=== PATIENT | female | born 1960 | race Two or more races ===

== ENCOUNTER 2020-04-27 07:54 | Outpatient (CLI) | payer OTHER | END 2020-04-27 23:59 | disposition home or self-care (01) | LOC: LAB 07:54 | PROVIDERS: ATTEND Specialist | DX: Z01.812 Encounter for preprocedural laboratory examination (principal); Z11.59 Encounter for screening for other viral diseases; M16.12 Unilateral primary osteoarthritis, left hip ==

== ENCOUNTER 2020-05-04 05:18 | Inpatient (IN) | payer OTHER ==
[~2020-05-04] VITALS: Ht 172.7 cm; Wt 94.3 kg
[2020-05-04 05:30] VITALS: BP 157/84
--- NOTE | 2020-05-04 05:30 | NUR ---
MS GEOLOGY ASSOCIATE NOTES PATIENT ADMITTED FOR DAY SURGERY WITH DR. WASHINGTON FOR LEFT HIP TOTAL ARTHROPLASTY. PATIENT IS A/OX4; STABLE ON RA; NO C/O SOB OR PAIN; BREATHING IS EVEN AND UNLABORED. PATIENT HAS BEEN NPO SINCE 05/03/20 AT 2100. IV STARTED ON RIGHT AC, SIZE 20, INTACT & PATENT, HEP LOCKED. CONSENTS SIGNED AND PLACED IN CHART. MRSA SWAB COMPLETED. VITAL SIGNS WNL. SAFETY MEASURES IN PLACE AND PATIENT'S NEEDS MET. WILL CONTINUE TO MONITOR.
--- NOTE | 2020-05-04 06:45 | NUR ---
MS RN NOTES PATIENT TRANSFERRED TO OR [facility]IA [facility]
[2020-05-04] MEDS ORDERED: MIDAZOLAM HCL 2 MG/2ML VIAL ONE ×2 (06:52→16:51)
[2020-05-04] MEDS ORDERED: FENTANYL PF 100MCG/2ML AMPUL ONE (06:53)
[2020-05-04] MEDS ORDERED: MORPHINE SULFATE/PF 10 MG/10ML (1MG/ML) AMPUL ONE (06:53)
[2020-05-04] MEDS ORDERED: FLUMAZENIL 0.5 MG VIAL ONE (06:53)
[2020-05-04] MEDS ORDERED: SCOPOLAMINE HBR 1 EA PATCH.TD72 TD ONE ×2 (06:54→18:00)
[2020-05-04] MEDS ORDERED: BACITRACIN 50000 UNITS/VIAL ONE (06:55)
[2020-05-04] MEDS ORDERED: BUPIVACAINE 0.5 % PF 150 MG/30 ML VIAL ONE (06:55)
--- NOTE | 2020-05-04 07:27 | NUR ---
MS RN NOTES RECEIVED SHORT REPORT ABOUT THE PATIENT. PATIENT IS A NEW ADMIT AND IS IN THE SURGERY RIGHT NOW. WILL CONTINUE CARE AND MONITORING AFTER PATIENT IS BACK FROM OR.
[2020-05-04] MEDS ORDERED: TRANEXAMIC ACID 3,000 MG in SODIUM CHLORIDE IRRIG SOLUTION 70 ML IR ONE (07:30)
[2020-05-04] MEDS ORDERED: ASPI-1169 PO (07:34)
[2020-05-04] MEDS ORDERED: [UNRECOGNIZED DRUG - CODE] PO (07:34)
[2020-05-04] MEDS ORDERED: HYDR-4384 PO (07:34)
--- NOTE | 2020-05-04 07:42 | NUR ---
MS RN CLOSING NOTES ENDORSED TO DAY SHIFT RN BELONGINGS LIST AND MADE AWARE OF PLAN OF CARE. PATIENT'S HOME MEDICATIONS SENT TO PHARMACY; PATIENT VERBALIZED UNDERSTANDING; REFERENCE NUMBER STAPLED TO BELONGINGS LIST AND GIVEN TO DAY SHIFT RN.
[2020-05-04] MEDS ORDERED: HYDROMORPHONE 1 MG/1 ML DISP.SYRIN IV PRN (10:30)
[2020-05-04] MEDS ORDERED: BISACODYL SUPP (10 MG) 10 MG/SUPP.RECT SUPP.RECT RC PRN (10:30)
[2020-05-04] MEDS ORDERED: HYDROCODONE/APAP 5/325MG 1 EACH TABLET PO PRN (10:30)
[2020-05-04] MEDS ORDERED: ONDANSETRON HCL/PF 4 MG/2 ML VIAL IVP PRN (10:30)
[2020-05-04] MEDS ORDERED: DOCUSATE SODIUM 250 MG CAPSULE PO PRN (10:30)
[2020-05-04] MEDS ORDERED: ACETAMINOPHEN 325 MG TABLET PO PRN (10:30)
[2020-05-04] MEDS ORDERED: ZOLPIDEM TARTRATE 5 MG TABLET PO PRN (10:30)
[2020-05-04] MEDS ORDERED: SENNOSIDES 15 MG PO PRN ×2 (10:30→12:52)
[2020-05-04 12:00] VITALS: BP 119/53
[2020-05-04] MEDS ORDERED: SENNOSIDES 8.6 MG TABLET PO PRN (13:00)
--- NOTE | 2020-05-04 14:04 | NUR ---
MS RN NOTES CALLED [employer] TWICE FOR LR SOLUTION BUT STILL DID NOT RECEIVE IT. WILL CONTACT AGAIN.
[2020-05-04] MEDS: IV LR 1000 ML 1,000 ML IV PRN (15:25)
[2020-05-04 16:00] VITALS: BP 122/72
[2020-05-04] MEDS: ANCEF 1 GM/50 ML D5W IV SCH ×4 (16:14→23:14)
[2020-05-04] MEDS ORDERED: PROMETHAZINE HCL 12.5 MG/SUPP.RECT RC PRN (17:00)
[2020-05-04] MEDS ORDERED: MAG HYDROX/AL HYDROX/SIMETH 30 ML UDC PO PRN (17:00)
[2020-05-04] MEDS ORDERED: diphenhydrAMINE HCL 25 MG CAPSULE PO PRN (17:00)
[2020-05-04] MEDS ORDERED: CLONIDINE HCL 0.1 MG TABLET PO PRN (17:00)
[2020-05-04] MEDS: DOCUSATE SODIUM 100 MG CAPSULE PO SCH (17:30)
[2020-05-04] MEDS ORDERED: PROMETHAZINE HCL 12.5 MG/SUPP.RECT RC ONE (18:00)
--- NOTE | 2020-05-04 18:55 | NUR ---
MOUSE BREEDER CLOSING NOTES PATIENT IN BED, ASLEEP; WOKEN UP EASILY. PATIENT A/O X4. AT THIS POINT ON OXYGEN THERAPY AT 2 LPM VIA NASAL CANNULA POST SURGERY; BREATHING IS EVEN AND UNLABORED; NO SOB NOTED AT THIS TIME. NO COMPLAINS OF PAIN SO FAR JUST NAUSEA AND 2 EPISODES OF VOMITING. ZOFRAN ADMINISTERED. TELE MONITOR WITH A CURRENT READING OF NORMAL SINUS RHYTHM. RAC G #20 PRESENT AND INTACT INFUSING LR AT 100 MLS/HR. POST OP DRESSING CLEAN AND INTACT. SAFETY PRECAUTIONS IN PLACE; BED IN LOW POSITION AND LOCKED, RAILS UP X2, CALL LIGHT WITHIN REACH, ABDUCTOR PILLOW IN PLACE. WILL ENDORSE TO MACHINE COMPOSITOR NURSE.
--- NOTE | 2020-05-04 19:15 | NUR ---
RN OPENING NOTE RECEIVED PT SLEEPING IN BED BUT ESAILY AROUSABLE TO NAME AND STIMULI. WHEN AWAKE, PATIENT IS ALERT AND ORIENTED X 4. PT IS CURRENTLY REFUSING O2 VIA NASAL CANULA. RESPIRATION EVEN AND UNLABORED WHILE ON ROOM AIR. S/P LEFT TOTAL HIP ARTHROPLASTY. PT CURRENTLY DENIES PAIN BUT HAS MINOR COMPLAINT OF UNRESOLVED NAUSEA. NO EMESIS PRESENT. PT ON TELE MONITOR SHOWING NORMAL SINUS RHYTHM. WITH RIGHT AC G #20 IV PATENT AND INTACT INFUSING LR AT 100 MLS/HR ORDERED. POST OP DRESSING CLEAN AND INTACT. ABDUCTOR PILLOW IN PLACE, BED LOCKED AND IN LOWEST POSITION, BED ALARM ON, CALL LIGHT WITHIN REACH, SAFETY PRECAUTIONS IN PLACE, WILL MONITOR PATIENT THROUGHOUT SHIFT.
[2020-05-04 20:00] VITALS: BP_SYST 126; BP_SYST 157; BP_DIAS 71; BP_DIAS 81
[2020-05-04] MEDS: ONDANSETRON HCL/PF 4 MG/2 ML VIAL IV PRN (20:43)
[2020-05-04] MEDS: FAMOTIDINE (20 MG) 20 MG TABLET PO SCH (21:15)
[2020-05-04] MEDS: ASPIRIN 81 MG TAB.CHEW PO SCH (21:15)
[2020-05-04] MEDS: MORPHINE SULFATE INJ 4 MG/ML DISP.SYRIN IM PRN (21:16)
[2020-05-05] VITALS (7 sets, daily range): BP systolic 117–141; BP diastolic 69–86
[2020-05-05] MEDS: ONDANSETRON HCL/PF 4 MG/2 ML VIAL IV PRN (00:49)
[2020-05-05] MEDS: IV LR 1000 ML 1,000 ML IV PRN ×2 (04:04→21:32)
--- NOTE | 2020-05-05 04:37 | NUR ---
RN NOTE DR. WASHINGTON AT BEDSIDE PROVIDING PT EDUCATION ON USE OF INCENTIVE SPIROMETER. Addendum: 05/05/20 at 0648 by LUISA TYLER RN ERROR. DR NICHOLSON AT BEDSIDE NOT DR. WASHINGTON.
[2020-05-05] MEDS: MORPHINE SULFATE INJ 4 MG/ML DISP.SYRIN IM PRN ×3 (04:50→20:00)
--- NOTE | 2020-05-05 06:13 | NUR ---
RN NOTE PT IS REFUSING PARTIAL BED BATH AND COMPLETE LINEN CHANGE AT THIS TIME STATING THAT IT MIGHT TRIGGER HER NAUSEA.
--- NOTE | 2020-05-05 06:34 | NUR ---
RN CLOSING NOTE NO ACUTE CHANGES OBSERVED OVERNIGHT. PT IS SLEEPING IN SEMIFOWLER'S POSITION BUT EASILY AROUSABLE. CURRENTLY ON ROOM AIR. RESPIRATIONS EVEN AND UNLABORED. WITHOUT INDICATIONS OF PAIN OR DISCOMFORT AT THIS TIME. WITH RIGHT AC # 20G IV PATENT AND WITHOUT COMPLICATIONS NOTED AT SITE. WITH LR RUNNING @ 100ML/HOUR ORDERED. ABDUCTOR PILLOW IN PLACE, ANAYA CATHETER PATENT AND IN PLACE DRAINING CLEAR YELLOW URINE. SAFETY MEASURES IN PLACE, CALL LIGHT WITHIN REACH, WILL ENDORSE TO MORNING RN FOR CONTINUATION OF CARE.
--- NOTE | 2020-05-05 07:50 | NUR ---
SHIFT LEADER OPENING NOTES PATIENT IN BED, ASLEEP; WOKEN UP EASILY. PATIENT A/O X4. AT THIS POINT ON OXYGEN THERAPY AT 2 LPM VIA NASAL CANNULA POST SURGERY; BREATHING IS EVEN AND UNLABORED; NO SOB NOTED AT THIS TIME. COMPLAINING OF PAIN AND NAUSEA. TELE MONITOR WITH A CURRENT READING OF NORMAL SINUS RHYTHM. RAC G #20 PRESENT AND INTACT INFUSING LR AT 100 MLS/HR. POST OP DRESSING CLEAN AND INTACT. SAFETY PRECAUTIONS IN PLACE; BED IN LOW POSITION AND LOCKED, RAILS UP X2, CALL LIGHT WITHIN REACH, ABDUCTOR PILLOW IN PLACE. WILL CONTINUE TO MONITOR PATIENT.
--- NOTE | 2020-05-05 08:22 | NUR ---
DOCKETING SPECIALIST NOTES PATIENT COMPLAINING OF PAIN 9 OUT OF 10. PRN PAIN MEDICATION ADMINISTERED. WILL CONTINUE TO MONITOR.
[2020-05-05 08:35] LABS: BASOPHILS % (AUTO) 0.3 % (0.0-2.0); EOSINOPHILS % (AUTO) 0.1 % (0.0-6.0); HEMATOCRIT 31 % (33-45); HEMOGLOBIN 9.7 g/dL (11.5-14.8); LYMPHOCYTES # (AUTO) 1.4 /CMM (0.8-4.8); LYMPHOCYTES % (AUTO) 15.6 % (20.0-44.0); MEAN CORPUSCULAR HGB CONC 31 g/dl (31.0-36.0); MEAN CORPUSCULAR VOLUME 80 fL (82-100); MONOCYTES # (AUTO) 0.8 /CMM (0.1-1.30); MONOCYTES % (AUTO) 8.2 % (2.0-12.0); NEUTROPHILS % (AUTO) 75.8 % (43.0-81.0); PLATELET COUNT (AUTO) 219 /CMM (150-450); RED BLOOD CELL COUNT(AUTO) 3.88 MIL/uL (4.0-5.2); WHITE BLOOD COUNT (AUTO) 9.3 K/uL (4.3-11.0)
[2020-05-05 08:50] LABS: CALCIUM, SERUM 8.6 mg/dL (8.5-10.1); CREATININE 0.9 mg/dL (0.6-1.3); MAGNESIUM 2.2 mg/dL (1.8-2.4); PHOSPHORUS 3.6 mg/dL (2.5-4.9); POTASSIUM 4.4 mmol/L (3.5-5.1)
[2020-05-05] MEDS: ASPIRIN 81 MG TAB.CHEW PO SCH ×2 (09:20→16:20)
[2020-05-05] MEDS: FAMOTIDINE (20 MG) 20 MG TABLET PO SCH ×2 (09:20→21:31)
[2020-05-05] MEDS: DOCUSATE SODIUM 100 MG CAPSULE PO SCH ×2 (09:20→16:20)
--- NOTE | 2020-05-05 14:47 | NUR ---
MS RN NOTES JACLYN D/C
--- NOTE | 2020-05-05 18:48 | NUR ---
MS RN CLOSING NOTES PATIENT IN BED, IN AND OUT OF SLEEP; WOKEN UP EASILY. PATIENT A/O X3. BREATHING ON ROOM AIR; BREATHING IS EVEN AND UNLABORED; NO SOB NOTED AT THIS TIME. DURING THE SHIFT PAIN TREATED WITH PRN MEDICATION. TELE MONITOR WITH A CURRENT READING OF NORMAL SINUS RHYTHM. RAC G #20 PRESENT AND INTACT INFUSING LR AT 100 MLS/HR. POST OP DRESSING CLEAN AND INTACT. PT EVAL DONE DURING THE DAY. ANAYA D/C AND PATIENT VOIDED. SAFETY PRECAUTIONS IN PLACE; BED IN LOW POSITION AND LOCKED, RAILS UP X2, CALL LIGHT WITHIN REACH, ABDUCTOR PILLOW IN PLACE. WILL ENDORSE TO INVENTORY COORDINATOR NURSE.
--- NOTE | 2020-05-05 19:30 | NUR ---
MS RN NOTES PATIENT IN BED, AWAKE, ALERT AND ORIENTED X 3. BREATHING EVEN AND UNLABORED ON ROOM AIR. SHOWS NO SIGNS OF ACUTE RESPIRATORY DISTRESS, NO ACUTE PAIN. IV ON RAC 20G RUNNING LR AT 100ML/HR. SHOWS NO SIGNS OF INFILTRATION, NO REDNESS. L TOTAL HIP ARTHROPLASTY 05/04 WITH DRESSING INTACT. SAFETY PRECAUTIONS IN PLACE. BED IN LOWEST POSITION, LOCKED, AND CALL LIGHT KEPT WITHIN REACH. WILL CONTINUE TO MONITOR.
--- NOTE | 2020-05-05 21:43 | NUR ---
MS RN NOTES PT WITH FEVER 101.3. STARTED COOLING MEASURES AND GIVEN TYLENOL AT 2143. PT GIVEN ICE PACK BUT REFUSED TO REMOVED BLANKETS OFF BODY. WILL CONTINUE TO MONITOR.
--- NOTE | 2020-05-05 22:43 | NUR ---
MS RN NOTES AN HOUR AFTER TYLENOL, PT TEMP 98.3. WILL CONTINUE TO MONITOR.
[2020-05-06] MEDS: MORPHINE SULFATE INJ 4 MG/ML DISP.SYRIN IM PRN ×3 (06:33→16:59)
--- NOTE | 2020-05-06 06:58 | NUR ---
MS RN NOTES PATIENT IN BED, AWAKE, ALERT AND ORIENTED X 3. BREATHING EVEN AND UNLABORED ON ROOM AIR. SHOWS NO SIGNS OF ACUTE RESPIRATORY DISTRESS, NO ACUTE PAIN. IV ON RAC 20G RUNNING LR AT 100ML/HR. SHOWS NO SIGNS OF INFILTRATION, NO REDNESS. L TOTAL HIP ARTHROPLASTY 05/04 WITH DRESSING INTACT. ALL DUE MEDICATIONS GIVEN. SAFETY PRECAUTIONS IN PLACE. BED IN LOWEST POSITION, LOCKED, AND CALL LIGHT KEPT WITHIN REACH. WILL ENDORSE TO ONCOMING NURSE.
--- NOTE | 2020-05-06 07:30 | NUR ---
RN Opening note Received patient OA x4, able to responds all stimuli. Pt is s/p left total hip arthroplasty, does no c/o pain or distress at time. Skin is warm to touch, keep clean/dry, intact IV site, dressing will change by MD. Respiratory even and unlabored in room air. Keep bed in locked with elevated HOB for ensure airway and aspiration precaution. Call light within reach, will continue to monitor.
[2020-05-06 08:00] VITALS: BP 127/68
[2020-05-06] MEDS: DOCUSATE SODIUM 100 MG CAPSULE PO SCH ×3 (08:57→16:59)
[2020-05-06] MEDS: FAMOTIDINE (20 MG) 20 MG TABLET PO SCH ×2 (08:57→20:48)
[2020-05-06] MEDS: ASPIRIN 81 MG TAB.CHEW PO SCH ×2 (08:57→16:50)
[2020-05-06] MEDS ORDERED: HYDROCODONE/APAP 10/325MG 1 EA TABLET PO PRN (09:30)
[2020-05-06] MEDS ORDERED: HYDROCODONE/APAP 10/325MG 1 EA TABLET PO ONE (12:00)
[2020-05-06 16:00] VITALS: BP 139/74
--- NOTE | 2020-05-06 18:55 | NUR ---
RN Closing note Patient in bed, given Narco 10mg 2tabsas ordered for s/p arthroplasty on left hip. Respiratory even and unlabored in room air. Skin is warm to touch, kept clean.dry, intact IV site. Waiting approve from ARU. Keep bed in locked with elevated HOB for aspiration precaution. Call light within reach, will endorse bridge construction inspector.
--- NOTE | 2020-05-06 19:30 | NUR ---
MS/RN OPENING NOTES RECEIVED PATIENT IN BED, AWAKE, ALERT AND ORIENTED X 3. BREATHING EVEN AND UNLABORED ON ROOM AIR. SHOWS NO SIGNS OF ACUTE RESPIRATORY DISTRESS. PATIENT HAS IV ON RIGHT AC 20G SL, INTACT. PATIENT HAS LEFT TOTAL HIP ARTHROPLASTY ON 05/04 WITH DRESSING INTACT. SAFETY MEASURES ARE IN PLACE BED IS PLACED IN THE LOWEST POSITION AND LOCKED, SIDE RAILS UP X 2. CALL LIGHT IS WITHIN REACH. WILL CONTINUE TO MONITOR PATIENT THROUGH OUT SHIFT.
[2020-05-06 20:00] VITALS: BP 161/88
--- NOTE | 2020-05-07 00:10 | NUR ---
MS/RN NOTES PATIENT WAS COMPLAINING OF ITCHING UPPER ARMS. BENADRYL 25 MG PO WAS GIVEN. WILL CONTINUE TO MONITOR.
--- NOTE | 2020-05-07 06:30 | NUR ---
MS/RN CLOSING NOTES PATIENT IN BED SLEEPING. PATIENT IS ALERT AND ORIENTED X 3. BREATHING EVEN AND UNLABORED ON ROOM AIR. NO SIGNS OF ACUTE RESPIRATORY DISTRESS NOTED. PATIENT HAS IV ON RIGHT AC 20G SL, INTACT. PATIENT HAS LEFT TOTAL HIP ARTHROPLASTY ON 05/04 WITH DRESSING INTACT. ALL PATIENTS NEEDS HAVE BEEN MET DURING SHIFT, ALL SCHEDULED MEDS GIVEN. SAFETY MEASURES ARE IN PLACE BED IS PLACED IN THE LOWEST POSITION AND LOCKED, SIDE RAILS UP X 2. CALL LIGHT IS WITHIN REACH. WILL ENDORSE CARE TO DAY SHIFT.
--- NOTE | 2020-05-07 06:45 | NUR ---
MS/RN NOTES PHONE CALL FROM DR. NICHOLSON. CHECKING TO SEE HOW PATIENT WAS OVERNIGHT WITH NORCO FOR PAIN.
[2020-05-07] MEDS ORDERED: MAGNESIUM HYDROXIDE 30 ML UDC PO ONE (06:59)
[2020-05-07 08:00] VITALS: BP 135/72
[2020-05-07] MEDS: FAMOTIDINE (20 MG) 20 MG TABLET PO SCH ×2 (08:26→20:58)
[2020-05-07] MEDS: DOCUSATE SODIUM 100 MG CAPSULE PO SCH ×2 (08:26→16:32)
[2020-05-07] MEDS: HYDROCODONE/APAP 10/325MG 1 EA TABLET PO PRN ×2 (08:27→22:47)
[2020-05-07] MEDS: ASPIRIN 81 MG TAB.CHEW PO SCH ×2 (08:27→16:29)
[2020-05-07 08:30] LABS: BASOPHILS % (AUTO) 0.3 % (0.0-2.0); HEMATOCRIT 27 % (33-45); HEMOGLOBIN 8.4 g/dL (11.5-14.8); LYMPHOCYTES # (AUTO) 2.1 /CMM (0.8-4.8); LYMPHOCYTES % (AUTO) 27.2 % (20.0-44.0); MEAN CORPUSCULAR HGB CONC 32 g/dl (31.0-36.0); MEAN CORPUSCULAR VOLUME 78 fL (82-100); MONOCYTES # (AUTO) 0.7 /CMM (0.1-1.30); MONOCYTES % (AUTO) 8.9 % (2.0-12.0); NEUTROPHILS # (AUTO) 4.8 /CMM (1.8-8.9); NEUTROPHILS % (AUTO) 62.6 % (43.0-81.0); PLATELET COUNT (AUTO) 231 /CMM (150-450); RED BLOOD CELL COUNT(AUTO) 3.43 MIL/uL (4.0-5.2); WHITE BLOOD COUNT (AUTO) 7.7 K/uL (4.3-11.0)
[2020-05-07 08:39] VITALS: BP 132/72
[2020-05-07 08:43] LABS: CALCIUM, SERUM 8.8 mg/dL (8.5-10.1); CREATININE 0.8 mg/dL (0.6-1.3); MAGNESIUM 2.2 mg/dL (1.8-2.4); PHOSPHORUS 2.7 mg/dL (2.5-4.9); POTASSIUM 3.7 mmol/L (3.5-5.1)
[2020-05-07] MEDS ORDERED: MAGNESIUM HYDROXIDE 30 ML UDC PO PRN (10:00)
[2020-05-07 16:00] VITALS: BP 134/68
[2020-05-07] MEDS: MORPHINE SULFATE INJ 4 MG/ML DISP.SYRIN IM PRN (18:25)
--- NOTE | 2020-05-07 18:38 | NUR ---
RN END OF SHIFT SUMMARY NOTE PT IS A/OX4, AFEBRILE. NON-MONITORED, VSS. TOLERATING RA. RESPIRATIONS ARE EVEN AND UNLABORED, NOT IN ANY ACUTE DISTRESS NOTED. PAIN MANAGED BY MORPHINE IVP AND NORCO PO PRN. +FLATUS, NO BM DURING SHIFT. VOIDS USING BSC. URINE COLLECTED FOR UA. PIV, FLUSHED, SL. AMBULATORY WITH FWW. SEEN BY PHYSICAL THERAPY TODAY AND WALKED AROUND UNIT X1. SURGICAL DRESSING CDI TO LEFT HIP. REINFORCED TEACHING FOR THE USE OF IS W/ RETURN DEMONSTRATION. ALL NEEDS MET AND RENDERED. SAFETY MEASURES ARE IN PLACE. CALL LIGHT IS LEFT WITHIN REACH. WILL MONITOR AND CONTINUE POC.
--- NOTE | 2020-05-07 19:05 | NUR ---
MS RN OPENING NOTES: RECEIVED PATIENT IN THE BEDSIDE COMMODE,VOIDED, ABLE TO GO BACK TO THE BED BY HERSELF,ONLY STANDBY ASSIST. OFFERED HELP,PATIENT REFUSED, SHE WANTS TO DO IT BY HERSELF. PATIENT IS A/O X4. NO SOB NOTED. NO COMPLAIN OF PAIN. CALL LIGHT WITHIN REACH. BED IN LOWEST AND LOCKED POSITION. PATIENT REFUSED SCD'S. WITH POST OP DRESSING ON THE LEFT HIP INTACT, DRY AND WITH VERY SMALL AMOUNT OF DRIED DRAINAGE. NO BLEEDING NOTED.
[2020-05-07 20:00] VITALS: BP 144/80
--- NOTE | 2020-05-07 22:52 | NUR ---
PATIENT TOOK ONLY ONE [place] TABLET. WITH LEFT HIP ICE PACKS IN PLACE.
--- NOTE | 2020-05-08 06:45 | NUR ---
MS RN CLOSING NOTES: PATIENT IN BED, AWAKE. A/O X4. CALL LIGHT WITHIN REACH. BED IN LOWEST AND LOCKED POSITION. PATIENT COMPLAINED OF LEFT LEG STIFFNESS, BUT ABLE TO BEND KNEE , PATIENT AGREED TO HAVE THE SCD's BACK ON, PLACED ON BOTH LEGS. ABDUCTION PILLOW PLACED BETWEEN THE LEGS. NO BM YET, OFFERED PRN MOM, REFUSED. NO SOB NOTED.
--- NOTE | 2020-05-08 07:51 | NUR ---
RN MS GARCIA NOTES PATIENT IS AWAKE AND ALERT A/O X 4. WITH NO SIGNS OF DISTRESS IN ROOM AIR. IV ON THE R AC #20G INTACT SL. COMPLAINS OF NO PAIN AT THIS MOMENT. ABDUCTION PILLOW PLACED BETWEEN HER LEGS. BED IS IN LOW POSITION WITH SIDE RAILS UP X 2 FOR SAFETY. CALL LIGHT WITHIN REACH. WILL CONTINUE TO MONITOR.
[2020-05-08 08:00] VITALS: BP 146/80
--- NOTE | 2020-05-08 08:00 | NUR ---
TEMPERATURE WAS 99.5 F. GAVE COLD PACKS AND NORCO FOR PAIN AND FEVER. WILL CONTINUE TO MONITOR.
[2020-05-08] MEDS: FAMOTIDINE (20 MG) 20 MG TABLET PO SCH ×2 (09:00→21:00)
--- NOTE | 2020-05-08 09:00 | NUR ---
TEMPERATURE DECREASED TO 99.3F. WILL CONTINUE WITH COLD MEASUREMENTS. WILL CONTINUE TO MONITOR.
[2020-05-08] MEDS: ASPIRIN 81 MG TAB.CHEW PO SCH ×2 (09:01→16:51)
[2020-05-08] MEDS: HYDROCODONE/APAP 10/325MG 1 EA TABLET PO PRN (09:01)
[2020-05-08] MEDS: DOCUSATE SODIUM 100 MG CAPSULE PO SCH (09:02)
--- NOTE | 2020-05-08 09:30 | NUR ---
PATIENT STATED TO BE NAUSEAS OFFERED HER PRN ZOFRAN IV. SHE REFUSED SAYING THAT THE ANTIEMETIC PATCH WAS STILL WORKING BEHIND HER RIGHT EAR. WILL CONTINUE TO MONITOR.
[2020-05-08] MEDS: ONDANSETRON HCL/PF 4 MG/2 ML VIAL IV PRN (14:37)
[2020-05-08 16:00] VITALS: BP 144/68
--- NOTE | 2020-05-08 18:52 | NUR ---
RN MS CLOSED NOTES PATIENT IS AWAKE AND ALERT A/O X 4. WITH NO SIGNS OF DISTRESS IN ROOM AIR. IV ON THE R AC #20G INTACT SL. COMPLAINS OF NO PAIN AT THIS MOMENT. ABDUCTION PILLOW PLACED BETWEEN HER LEGS. PATIENT REMAINED STABLE THROUGH OUT OF SHIFT. PATIENT KEPT CLEAN AND DRY. ALL NEEDS, CARE, TREATMENT AND MEDICATIONS ADMINISTERED ANTICIPATED PER ORDER. SAFETY MEASURE APPLIED, BED IS IN LOW POSITION WITH SIDE RAILS UP X 2 FOR SAFETY. CALL LIGHT WITHIN REACH. WILL ENDORSE TO THE NEXT [place] MACHINE OPERATOR.
--- NOTE | 2020-05-08 19:20 | NUR ---
MS RN OPENING NOTES: RECEIVED PATIENT IN BED, AWAKE, A/O X4. NO SOB NOTED. NO COMPLAIN OF PAIN AND NAUSEA AT THIS TIME. CALL LIGHT WITHIN REACH. BED IN LOWEST AND LOCKED POSITION. STILL NO BM YET, OFFERED MOM, REFUSED. BEDSIDE COMMODE NEAR THE BED. REFUSED THE SCD's. PER PATIENT, MD CAME AND REMOVED THE POST OP DRESSING AND EXAMINED THE SURGICAL SITE. LEFT HIP INCISION IS CLEAN AND DRY, NO DRAINAGE, HEATHER ARE INTACT, LEFT HIP SWOLLEN. SURGICAL INCISION COVERED WITH DRESSING.
[2020-05-08 20:00] VITALS: BP 141/67
[2020-05-08 20:34] VITALS: BP 141/67
[2020-05-08 22:17] VITALS: BP 150/84
[2020-05-08] MEDS: MORPHINE SULFATE INJ 4 MG/ML DISP.SYRIN IM PRN (22:20)
--- NOTE | 2020-05-08 22:30 | NUR ---
PATIENT REFUSED TO HAVE THE ABDUCTION PILLOW ON HER LEGS. INSTRUCTED NOT TO CROSS HER LEGS,PATIENT VERBALIZED UNDERSTANDING. REMINDED OF THE IMPORTANCE OF THE ABDUCTION PILLOW.
--- NOTE | 2020-05-08 22:34 | NUR ---
PATIENT IS SITTING AT THE BEDSIDE COMMODE AT THIS TIME, CAITLYN LAGOS AT THE ROOM TO ASSIST THE PATIENT. INSTRUCTED TO TURN THE BED ALARM ON.
--- NOTE | 2020-05-08 22:56 | NUR ---
ICE PACKS PLACED TO THE LEFT HIP.SCD's ON THE LEGS ON. BED ALARM ON.
--- NOTE | 2020-05-08 22:57 | NUR ---
PATIENT SAID THAT HER CHEST PAIN IS 8/10 LEVEL, TIGHTNESS. PATIENT VERBALIZED" IT'S GETTING BETTER NOW AND IT WILL GO AWAY". WILL MONITOR.
--- NOTE | 2020-05-09 00:06 | NUR ---
PATIENT IS ASLEEP AT THIS TIME.
--- NOTE | 2020-05-09 01:47 | NUR ---
PATIENT WAS UPSET BECAUSE SHE SAID THAT AROUND 2099 TO 2129, SHE PRESSED THE CALL [employer] AND SOMEBODY ANSWERS THE CALL BUT NO ONE CAME. ASKED THE BULK PLANT SUPERVISOR FERNANDA IF SHE RECEIVED A CALL FROM THE PATIENT AND SHE SAID NO. ACCORDING TO THE PATIENT, SHE WENT TO THE BATHROOM AND SHE SLIPPED AND ALMOST FALL BECAUSE SHE STEPPED ON HER URINE, SHE WAS ABLE TO SIT ON THE TOILET. PATIENT SAID THAT SHE ASKED THE EVS TO CLEAN THE FLOOR. INFORMED THE CHARGE NURSE GIORGIO ABOUT THE INCIDENT AND TALKED TO THE PATIENT.
--- NOTE | 2020-05-09 06:22 | NUR ---
MS RN CLOSING NOTES: PATIENT IN BED, AWAKE, PATIENT IS ON THE PHONE. NO SOB NOTED. NO C/O PAIN. CALL LIGHT WITHIN REACH. BED ALARM ON. BED IN LOWEST AND LOCKED POSITION. V/S STABLE. AFEBRILE.
[2020-05-09 08:10] VITALS: BP 139/84
[2020-05-09] MEDS: ASPIRIN 81 MG TAB.CHEW PO SCH ×2 (09:32→17:31)
[2020-05-09] MEDS: FAMOTIDINE (20 MG) 20 MG TABLET PO SCH ×3 (09:35→21:09)
[2020-05-09] MEDS ORDERED: Hydrocodone/Apap 10/325MG PO (18:23)
[2020-05-09] MEDS ORDERED: ASPI-1169 PO (18:23)
--- NOTE | 2020-05-09 18:51 | NUR ---
RN MS CLOSED NOTES PATIENT IS AWAKE AND ALERT A/O X 4. WITH NO SIGNS OF DISTRESS IN ROOM AIR. IV ON THE R AC #20G INTACT SL. COMPLAINS OF NO PAIN AT THIS MOMENT. ABDUCTION PILLOW PLACED BETWEEN HER LEGS. ALL NEEDS, CARE, TREATMENT AND MEDICATIONS ADMINISTERED ANTICIPATED PER ORDER. SAFETY MEASURES ARE APPLIED, BED IS IN LOW POSITION WITH SIDE RAILS UP X 2 FOR SAFETY. CALL LIGHT WITHIN REACH. WILL ENDORSE TO THE NEXT PIPE ORGAN TUNER AND REPAIRER.
[2020-05-09 20:00] VITALS: BP 152/75
--- NOTE | 2020-05-09 20:00 | NUR ---
MS RN OPENING NOTE: Received patient in bed. Awake and alert. On room air, shows no signs of distress. No SOB, breathing unlabored and equal. Noted IV access on right AC. Patent, no infiltration, or redness. Safety precaution in place, bed in lowest position, brakes are on, side rails x2 are up, alarm is on and call light is within reach. Will continue care of plan.
[2020-05-09] MEDS: HYDROCODONE/APAP 10/325MG 1 EA TABLET PO PRN (21:11)
[2020-05-09 23:00] VITALS: BP 137/72
--- NOTE | 2020-05-09 23:00 | NUR ---
rn ms continuity of care notes received patient from 3w placed in room 201, oriented to staff and call light and kept within reach, alert and oriented x4, respirations even and unlabored with equal rise and fall of chest, denies any pain or discomfort at this time, upon body assessment patient states " left leg/ankle is swollen because of that pepcid medication I cant take it ". picture of ankle taken non pitting swelling, also noted left hip surgical site with esa intact, minimal serosanguineous drainage noted on dressing , per patient request changed dressing, site cleansed , pat dried and covered with surgical dsg. picture also taken placed in chart. belongings list done , patient aware of belongings and signed belongings list and complete. iv site to right ac intact and patent, no redness, no infiltration present, assisted to bsc and back to bed, both lower extremities elevated, safety precautions in place, low bed and locked, bed alarm audible and intact, fluids provided, remains comfortable all needs attended will continue to monitor.
--- NOTE | 2020-05-09 23:11 | NUR ---
MS RN NOTE: Patient refused Pepcid.
--- NOTE | 2020-05-10 06:26 | NUR ---
rn ms closing notes patient in bed, call light and kept within reach, alert and oriented x4, respirations even and unlabored with equal rise and fall of chest, denies any pain or discomfort at this time, left ankle noted with non pitting swelling elevated with pillows, left hip dressing remains clean dry and intact , iv site to right ac intact and patent, no redness, no infiltration present, assisted to bsc and back to bed throughout shift, both lower extremities elevated, safety precautions in place, low bed and locked, bed alarm audible and intact, fluids provided, remains comfortable all needs attended will continue to monitor and endorse to next shift.
--- NOTE | 2020-05-10 07:20 | NUR ---
RN opening notes Received patient in bed, alert and oriented x4. Not in any form of distress. No SOB. Denied pain or discomfort at this time, left ankle noted with non pitting swelling elevated with pillows. Left hip dressing remains clean dry and intact. IV access in tact and patent, no redness, no infiltration. Both lower extremities elevated, safety precautions in place. Bed in low and locked position, bed alarm on. call light in reach. Will cont to monitor accordingly
[2020-05-10 08:00] VITALS: BP 148/82
[2020-05-10] MEDS: ASPIRIN 81 MG TAB.CHEW PO SCH ×2 (08:48→17:14)
[2020-05-10] MEDS: FAMOTIDINE (20 MG) 20 MG TABLET PO SCH ×2 (08:52→20:16)
--- NOTE | 2020-05-10 08:52 | NUR ---
REFUSED PEPCID. PER PATIENT IT MAKES HER FEET SWELL UP. DR MARC AT BEDSIDE AND WAS AWARE. PER MD HE'LL LOOK UP THE CHART IF PATIENT NEEDS IMAGING.
--- NOTE | 2020-05-10 10:20 | NUR ---
seen by PT, ambulated on the unit via walker. tolerated well.
[2020-05-10 16:00] VITALS: BP 141/81
--- NOTE | 2020-05-10 18:49 | NUR ---
RN CLOSING NOTES PATIENT IN STABLE CONDITION. ALL NEEDS ATTENDED AND PROVIDED. ALL DUE MEDS GIVEN ORDERED. KEPT PATIENT SAFE AND COMFORTABLE. BED IN LOW/LOCKED POSITION. SIDERAILS UPX2,CALL LIGHT IN REACH. WILL ENDORSE TO NIGHT NURSE ACCORDINGLY.
--- NOTE | 2020-05-10 19:05 | NUR ---
RN OPENING NOTES Received patient, awake, A/On x4. On RA, denies any discomfort at this time. Call light within easy reach. Will continue to monitor accordingly.
[2020-05-10 20:02] VITALS: BP 157/70
[2020-05-10 20:19] VITALS: BP 157/70
[2020-05-10] MEDS: MORPHINE SULFATE INJ 4 MG/ML DISP.SYRIN IM PRN (21:45)
--- NOTE | 2020-05-11 06:41 | NUR ---
RN CLOSING NOTES Pt asleep on bed, appeared comfortably, no s/sx of discomfort/distress noted at this time. All nursing needs attended, PRN meds given for pain, noted effective. Pt kept on bed clean, dry and comfortable. Call light within easy reach. Endorsed to the next shift.
--- NOTE | 2020-05-11 07:20 | NUR ---
RN OPENING NOTES PATIENT IN BED RESTING. NOT IN ANY FORM OF DISTRESS. NO SOB. COMPLAINTS OF PAIN ON SURGERY SITE. WILL ADMIN PAIN MEDS ORDERED. IV ACCESS INTACT AND PATENT. BED IN LOW/LOCKED POSITION, SIDERAILS UPX2,CALL LIGHT IN REACH. ABDUCTOR PILLOW IN PLACE. BED ALARM ON. WILL CONT TO MONITOR ACCORDINGLY
[2020-05-11] MEDS: HYDROCODONE/APAP 10/325MG 1 EA TABLET PO PRN (07:21)
[2020-05-11 07:48] VITALS: BP 147/81
[2020-05-11 08:00] VITALS: BP 147/81
[2020-05-11] MEDS: FAMOTIDINE (20 MG) 20 MG TABLET PO SCH ×2 (09:00→21:00)
[2020-05-11] MEDS: ASPIRIN 81 MG TAB.CHEW PO SCH ×2 (09:07→16:21)
[2020-05-11 16:00] VITALS: BP 153/83
--- NOTE | 2020-05-11 16:30 | NUR ---
RN NOTES DRESSING CHANGED. SX INCISION IS CLEAN AND DRY. NO S/S OF INFECTION.
--- NOTE | 2020-05-11 18:09 | NUR ---
CALLED [facility] TO GIVE REPORT BUT [facility] PRESSER, DEVIN, SAID TO CALL BACK AFTER 1900. PER DEVIN, THEY CANT GET REPORT AT THIS TIME BECAUSE THEY ARE TRANSFERRING PATIENT.
--- NOTE | 2020-05-11 19:27 | NUR ---
RN CLOSING NOTES PATIENT IN STABLE CONDITION. ALL NEEDS ATTENDED AND PROVIDED. ALL DUE MEDS GIVEN ORDERED. KEPT PATIENT SAFE AND COMFORTABLE. BED IN LOW/LOCKED POSITION. SIDERAILS UPX2,CALL LIGHT IN REACH. ENDORSED TO NIGHT NURSE ACCORDINGLY. FOR DISCHARGE, P/U AT 2030
--- NOTE | 2020-05-11 19:28 | NUR ---
rn notes skin photos endorsed to [facility]
--- NOTE | 2020-05-11 19:28 | NUR ---
HOME MEDS RETURNED
--- NOTE | 2020-05-11 21:09 | NUR ---
RN NOTES 2051 Spoke to RN Liu, report given. 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 Report and discharge paper endorsed to EMT Coleman. On on [facility], secured accordingly. Transported accompanied by 2 network security officer. All pt's belongings accounted for. Left the facility at this time.
== END 2020-05-11 21:10 | DRG 470 ==
LOC: DS 05:18 → MED 05:22 → TELE 20:11 → MED 05-05 11:48 → MEDSG2 05-09 22:59 → MED 05-11 18:34
PROVIDERS: ADMIT Specialist; ATTEND Specialist
PROC: 0SRB0JZ Replacement of Left Hip Joint with Synthetic Substitute, Open Approach (ICD-10-PCS; principal; 2020-05-04)
DX: M16.12 Unilateral primary osteoarthritis, left hip (principal); I10 Essential (primary) hypertension; E66.01 Morbid (severe) obesity due to excess calories; G89.29 Other chronic pain; Z90.710 Acquired absence of both cervix and uterus; Z68.31 Body mass index [BMI] 31.0-31.9, adult; Z87.891 Personal history of nicotine dependence; R11.2 Nausea with vomiting, unspecified; X58.XXXA Exposure to other specified factors, initial encounter; Y92.89 Other specified places as the place of occurrence of the external cause; Y93.9 Activity, unspecified; Y99.0 Civilian activity done for income or pay; Z88.4 Allergy status to anesthetic agent; Z88.2 Allergy status to sulfonamides; Z88.8 Allergy status to other drugs, medicaments and biological substances
CPT/HCPCS: 36415; 80048-TC; 83735-TC; 84100-TC; 85025-TC; 86850-TC; 87081-TC; 93971-TC; 97110-TC; 97116-TC; 97530-TC; A4217; A6209; A6402; C1776; G0378; J0330; J0690; J1100; J1885; J2250; J2270; J2274; J2405; J2704; J3010; J3490; J7060; J7120; Q0163